=== PATIENT | female | born 1960 | race Caucasian/White ===

== ENCOUNTER → 2016-08-18 | Outpatient (CLI) | payer BC ==
--- NOTE | 2016-08-18 12:53 | WWHP ---
DATE OF SERVICE: 08/18/2016 CHIEF COMPLAINT: The patient is here for her routine gynecologic exam and mammogram. HPI: This is a 55-year-old, G2, P1-0-1-1 with an LMP of 2014. The patient is without gynecologic complaints and denies any postmenopausal bleeding. She states hot flashes are bearable and not very severe. She is without gynecologic complaints. PAST MEDICAL HISTORY: Chronic hypertension, type 2 diabetes, hypothyroidism, elevated cholesterol, sleep apnea, and osteopenia. MEDICATIONS: 1. Enalapril 10/25 mg daily. 2. Synthroid 112 mcg daily. 3. Metformin 500 mg b.i.d. 4. An [id number] cholesterol supplement daily. ALLERGIES: No known drug allergies. 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 SOCIAL HISTORY: She quit smoking in 2012 and has about 1 to 2 alcoholic drinks per week. She denies drug use. 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 She has been with her boyfriend since 2007 and previously was . REVIEW OF SYSTEMS: She has gained about 4 pounds over the last year. She denies respiratory, cardiac, or GI problems. PHYSICAL EXAM: Blood pressure 129/84. Height 5 feet 3 inches. Weight 254 pounds. Temperature 98.5, pulse 71. This a well-developed, heavyset white female who is alert and oriented x3 in no acute distress. HEENT is within normal limits. NECK: Supple without mass or thyromegaly. CHEST AND LUNGS: Clear to auscultation. HEART: Regular rate and rhythm. Breasts are without mass or discharge. Axillary exam is negative for adenopathy. BACK: Negative for CVA tenderness. ABDOMEN: Obese, soft, nontender, without palpable masses. PELVIC EXAM: Normal external genitalia. Cervix and vagina reveal mild atrophy without lesions. There is no evidence of prolapse. The uterus is midposition, nongravid size and nontender. There are no palpable adnexal masses or tenderness. Bimanual examination is somewhat limited secondary to her size. Rectovaginal exam is negative for mass or tenderness and is negative for occult blood. EXTREMITIES: Nontender. IMPRESSION: 1. A 55-year-old menopausal female with mild vasomotor symptoms. 2. Normal gynecologic exam. 3. History of osteopenia. PLAN: 1. Pap smear was deferred, since she had a normal one last year. 2. Self breast examination was discussed. 3. Mammogram will be done today. 4. Osteoporosis prevention was discussed. Bone density screening will be done today. 5. I have recommended screening colonoscopy based on her age. She states she has some names of people who can do this and will look into doing this. 6. She will return in one year.
--- NOTE | 2016-08-18 15:07 | BD ---
EXAMINATION TYPE: MG DEXA axial skeleton. DATE OF EXAM: 08/18/2016 10:06 AM COMPARISON: NONE CLINICAL HISTORY: Postmenopausal female without hormonal replacement therapy Height: 62.5 IN Weight: 252 LBS FRAX RISK QUESTIONS: Alcohol (3 or more units per day): NO Family History (Parent hip fracture): NO Glucocorticoids (More than 3mos): NO (Ex: prednisone, prednisolone, methylprednisolone, dexamethasone, and hydrocortisone). History of Fracture in Adulthood: NO Secondary Osteoporosis: 1. Type 1 Diabetes: NO 2. Hyperthyroidism: NO 3. Menopause before 45: NO 4. Malnutrition: NO 5. Chronic liver disease: NO Rheumatoid Arthritis: NO Current Tobacco Use: NO RISK FACTORS HISTORY OF: Active: YES Postmenopausal woman: AGE 54 MEDICATIONS: Thyroid Medications: YES Which medication: Synthroid How Long: SINCE AGE 14 Additional Medications: VIT D, SYNTHROID, METFORMIN, HCTZ, NAPROXEN, B12, BIOTIN, MELATONIN EXAM MEASUREMENTS: Bone mineral densitometry was performed using the Verious System. Bone mineral density as measured about the Lumbar spine is: ----- L1-L4(G/cm2): 1.061 T Score Values are as follows: ----- L2: -1.5 ----- L3: -0.1 ----- L4: -1.0 ----- L1-L4: -1.0 Bone mineral density BASELINE Bone mineral density about the R hip (g/cm2): 0.948 Bone mineral density about the L hip (g/cm2): 0.830 T Score values are as follows: -----R Neck: -0.6 -----L Neck: -1.5 -----R Total: 0.0 -----L Total: -0.4 Bone mineral density BASELINE IMPRESSION: Osteopenia NOTE: T-SCORE=SD OF THE YOUNG ADULT MEAN.
--- NOTE | 2016-08-19 10:36 | MM ---
Reason for exam: screening (asymptomatic). Last mammogram was performed 1 year and 2 months ago. History: Patient has history of other cancer at age 14. Benign US left CoreBiopsy of both breasts, April 14, 2007. Benign US right core biopsy of the right breast, April 14, 2007. Benign US right core biopsy of the right breast, April 14, 2007. Cyst aspiration of the right breast, April 05, 2007. Physical Findings: A clinical breast exam by your physician is recommended on an annual basis and results should be correlated with mammographic findings. MG 3D Screening Mammo W/Cad Bilateral CC and MLO view(s) were taken. Prior study comparison: July 02, 2015, bilateral MG screening mammo w CAD. June 26, 2014, bilateral MG screening mammo w CAD. The breast tissue is heterogeneously dense. This may lower the sensitivity of mammography. Previous mammotome biopsy in the right and left breast. There is chronic nodularity in the left breast. No significant changes when compared with prior studies. ASSESSMENT: Benign, BI-RAD 2 RECOMMENDATION: Routine screening mammogram of both breasts in 1 year.
== END | disposition home or self-care (01) ==
LOC: WWCWWP 07:48
PROVIDERS: ATTEND Obstetrics & Gynecology
DX: Z12.31 Encounter for screening mammogram for malignant neoplasm of breast (principal); M85.80 Other specified disorders of bone density and structure, unspecified site
CPT/HCPCS: 77080; 77063; G0202

== ENCOUNTER → 2016-10-07 | Outpatient (CLI) | payer BC ==
[2016-10-07 08:21] LABS: CH 31.5; CHCM 34.9; HCT 39.3 % (34.0-46.0); MCH 32.2 pg (25.0-35.0); MCHC 35.5 g/dL (31.0-37.0); MCV 90.6 fL (80.0-100.0); Mean Platelet Volume 6.9; RBC 4.33 m/uL (3.80-5.40); RDW 13.6 % (11.5-15.5)
[2016-10-07 08:32] LABS: Amorphous Sediment,Urine Occasional /hpf; Appearance,Urine Cloudy (Clear); Bilirubin,Urine Negative (Negative); Glucose,Urine (UA) Negative (Negative); Ketones,Urine Negative (Negative); Leukocyte Esterase,Urine Negative (Negative); Mucus,Urine Rare /hpf; Nitrite,Urine Negative (Negative); PH, Urine 5.5 (5.0-8.0); Particle Count 4199; Protein,Urine Trace (Negative); Specific Gravity,Urine 1.023 (1.001-1.035); Squamous Epithelial Cell,Urine 7 /hpf (0-4); UA Billing (MACRO vs. MICRO) MICRO; Urobilinogen,Urine <2.0 mg/dL (<2.0); WBC,Urine 3 /hpf (0-5)
[2016-10-07 11:52] LABS: ALT 86 U/L (9-52); AST 52 U/L (14-36); Alkaline Phosphatase 81 U/L (38-126); Anion Gap 12 mmol/L; Blood Urea Nitrogen 24 mg/dL (7-17); C Reactive Protein 14.8 mg/L (<10.0); Calcium 9.2 mg/dL (8.4-10.2); Carbon Dioxide 26 mmol/L (22-30); Chloride 104 mmol/L (98-107); Glucose 116 mg/dL (74-99); HDL Cholesterol 76 mg/dL (40-60); Non-African American GFR(MDRD) >60 (>60 ml/min/1.73 sqM); Potassium 3.8 mmol/L (3.5-5.1); Sodium 142 mmol/L (137-145); Total Bilirubin 0.8 mg/dL (0.2-1.3); Total Protein 7.2 g/dL (6.3-8.2); Triglycerides 98 mg/dL (<150)
[2016-10-07 12:42] LABS: Cholesterol 240 mg/dL (<200)
[2016-10-07 14:39] LABS: Hemoglobin A1C 6.2 % (4.2-6.1)
== END | disposition home or self-care (01) ==
LOC: LABWHC1 07:55
PROVIDERS: ATTEND Internal Medicine
DX: E78.5 Hyperlipidemia, unspecified (principal); E03.9 Hypothyroidism, unspecified; E11.9 Type 2 diabetes mellitus without complications
CPT/HCPCS: 36415; 80053; 80061; 81001; 82043; 82570; 83036; 84443; 85027; 86140

== ENCOUNTER → 2016-11-11 | Outpatient (CLI) | payer BC ==
--- NOTE | 2016-11-12 05:32 | WWPN ---
DATE OF SERVICE: 11/11/2016 CHIEF COMPLAINT: Light vaginal bleeding on and off since 10/16/2016. HPI: This is a 55-year-old G2, P1-0-1-1 with an LMP of 2014. She states she did not have vaginal bleeding until last month. On 10/16/16, she had light stringy bleeding. She also had light bleeding episodes on 10/26/16, 11/07/16 and 11/09/16. She states none of these episodes were like a period, but were very light. Occasionally, the blood was dark, but at times was brighter red. She also has been experiencing some breast soreness for the past 2 months. With the first episode of bleeding, she did have some low back cramping. Since then, the bleeding episodes were without pelvic cramping. She denies vaginal bleeding with sexual activity. She denies any nipple leakage from the breast. She continues to have some hot flashes, which are not very severe, but are slightly worse than the past year. PAST MEDICAL HISTORY: Chronic hypertension, type 2 diabetes, hypothyroidism, elevated cholesterol, sleep apnea, osteopenia and she was recently diagnosed with fatty liver. MEDICATIONS: 1. Triamterene hydrochlorothiazide 37.5/25 one daily. 2. Enalapril 10/25 daily. 3. Synthroid 112 mcg daily. 4. Metformin 500 mg b.i.d. 5. She also uses an okyg-orp-gvpylky cholesterol supplement daily. ALLERGIES: No known drug allergies. REVIEW OF SYSTEMS: She denies respiratory, cardiac or GI problems. Weight has been stable over the past few months. PHYSICAL EXAM: Blood pressure 119/82. Height 5 feet 3 inches. Weight 252 pounds. Temperature 98.0. Pulse 93. This is a well-developed, obese, white female who is alert and oriented x3 in no acute distress. ABDOMEN: Obese, soft, nontender without palpable masses. PELVIC EXAM: External genitalia reveals minimal atrophy without lesions. Cervix does reveal a small polypoid growth at the cervical os measuring approximately 4 to 5 mm. This is slightly friable upon being touched. There are no other cervical lesions. There is no unusual discharge. There is no cervical motion tenderness. The vagina appears normal with minimal atrophy. There is no evidence of prolapse. The uterus is mid position, multiparous, nongravid size and nontender. There are no palpable adnexal masses or tenderness. Bimanual examination is somewhat limited secondary to her size. EXTREMITIES: Nontender. IMPRESSION: A 55-year-old female with several episodes of postmenopausal bleeding, which has been light. Differential diagnosis will include bleeding from cervical polyp, uterine bleeding secondary to functioning ovaries. Uterine bleeding from hormonal peripheral conversion into estrogen causing endometrial growth, endometrial neoplasm including possible hyperplasia or endometrial cancer. Also, less likely, ovarian neoplasm causing hormone production. PLAN: 1. Pelvic ultrasound will be scheduled. 2. The patient will be scheduled for an endometrial biopsy and removal of the cervical polypoid growth. We have discussed these procedures in detail including possible risks including bleeding, infection and uterine perforation with damage to surrounding structures. 3. She also understands if I am not able to perform the endometrial biopsy because of cervical stenosis or other reasons, outpatient D&C with possibly hysteroscopy may be warranted. 4. If endometrial biopsy is benign, we will consider cyclic progestin treatment. 5. She also understands if she is having recurrent bleeding even if the endometrial biopsy is benign that further workup such as D&C may be necessary. 6. These appointments for the workup will be made for the near future. Total time spent with the patient 30 minutes. OSWALD
== END | disposition home or self-care (01) ==
LOC: WWCWWP 11:15
PROVIDERS: ATTEND Obstetrics & Gynecology
DX: Z01.419 Encounter for gynecological examination (general) (routine) without abnormal findings (principal)

== ENCOUNTER → 2016-11-24 | Outpatient (CLI) | payer BC ==
--- NOTE | 2016-11-24 11:10 | US ---
EXAMINATION TYPE: US pelvis complete transvag DATE OF EXAM: 11/24/2016 COMPARISON: NONE CLINICAL HISTORY: N95.0 Postmenopausal bleeding. TECHNIQUE: Transvaginal (TV) and Transabdominal (TA) Date of LMP: 2014 EXAM MEASUREMENTS: Uterus: 7.4 x 3.4 x 4.9 cm Endometrial Stripe: 1.1 cm Right Ovary: 1.7 x 0.9 x 1.1 cm Left Ovary: 1.4 x 1.2 x 1.1 cm 1. Uterus: Anteverted wnl 2. Endometrium: thickened for postmenopausal not on HRT. 3. Right Ovary: wnl 4. Left Ovary: wnl 5. Bilateral Adnexa: wnl 6. Posterior cul-de-sac: no free fluid The uterus is heterogenous. I could not exclude adenomyosis. IMPRESSION: 1. ENDOMETRIAL STRIPE IS UPPER LIMITS OF NORMAL. 2. HETEROGENOUS UTERUS MAY REFLECT ADENOMYOSIS.
--- NOTE | 2016-11-24 15:21 | P.PCN ---
Date of Procedure: 11/24/16 Preoperative Diagnosis: Postmenopausal bleeding and endocervical polyp Postoperative Diagnosis: Same Procedure(s) Performed: Removal of Endo cervical polyp and endometrial biopsy Implants: Anesthesia: none Surgeon: Loco Ames Estimated Blood Loss (ml): 1 IV fluids (ml): 0 Pathology: other (Endo cervical polyp and endometrial biopsy tissue) Condition: stable Disposition: same day Indications for Procedure: This was a 56 year old 011 with the last normal menstrual period of 2014. The patient developed 3 episodes of light relief vaginal bleeding between and 11/09/2016. Was found to have an Endo cervical polyp on 11/11/2016 the procedures were explained to the patient. Possible risks and complications including bleeding and infection, and uterine perforation were discussed with the patient. All of her questions were answered. Operative Findings: In Endo cervical polyp measuring 7 x 5 x 4 mm all was noted and was slightly friable. The uterus measured 7 cm. There were no palpable adnexal masses or tenderness. Pre-procedure vital signs: blood pressure 123/85, height 5'3", weight 254 pounds , tension 96.2, pulse 78. OPERATIVE PROCEDURE: The endometrial biopsy procedure was described to the patient. All of her questions were answered. The patient was placed in the lithotomy position. Bimanual examination was performed. The uterus is mid- positioned and is non- gravid size. The speculum was inserted and the cervix and vagina were prepped with betadine solution. In Endo cervical polyp was noted measuring approximately 7x5x4 mm in size. This was slightly friable. This was removed in 3 pieces and these pieces were sent for pathological examination. The 3mm endometrial biopsy curette was placed to the fundus without difficulty. The uterus sounded to 7 cm. a hgft-fid-deogb rotating motion was used and a small amount of tissue was obtained and sent for pathological examination. The patient tolerated the procedure well. There were no complications. The post procedure vitals are as follows: blood pressure 132/79. pulse 71, temperature 96.0. Post procedure instructions were given to the patient. Description of Procedure:
== END | disposition home or self-care (01) ==
LOC: RADUSWWP 10:17
PROVIDERS: ATTEND Obstetrics & Gynecology
DX: N95.0 Postmenopausal bleeding (principal); N84.1 Polyp of cervix uteri; N84.0 Polyp of corpus uteri
CPT/HCPCS: 76830; 76856; 88305

== ENCOUNTER → 2017-04-07 | Outpatient (CLI) | payer BC ==
[2017-04-07 08:36] LABS: ALT 83 U/L (9-52); AST 48 U/L (14-36); Glucose 115 mg/dL (74-99)
[2017-04-07 19:46] LABS: Hemoglobin A1C 5.8 % (4.0-6.0)
== END | disposition home or self-care (01) ==
LOC: LABWHC1 07:27
PROVIDERS: ATTEND Internal Medicine
DX: E11.9 Type 2 diabetes mellitus without complications (principal); E78.5 Hyperlipidemia, unspecified
CPT/HCPCS: 36415; 82947; 83036; 83721; 84450; 84460

== ENCOUNTER → 2017-08-31 | Outpatient (CLI) | payer BC ==
[2017-08-31 16:11] VITALS: PULSE 86; TEMP 98.4; BMI 44.8
[2017-08-31 16:25] VITALS: BP 118/84
--- NOTE | 2017-08-31 16:57 | P.HPOB ---
History of Present Illness H&P Date: 08/31/17 Chief Complaint: The patient is here for her routine gynecologic exam and mammogram. This is a 56-year-old with an LNMP of 2014. The patient developed postmenopausal bleeding last summer and removal of an endocervical polyp and endometrial biopsy on 11/24/2016. The findings were benign with a benign endocervical polyp and a small endometrial polyp on pathology. The patient noted a small spot of blood in May 2017 but has had no bleeding since then. Review of Systems Weight has been stable. She denies respiratory, cardiac, and G.I. problems. Past Medical History Past Medical History: Diabetes Mellitus (Type II diabetes), Hyperlipidemia, Hypertension, Thyroid Disorder (Hypothyroid) Additional Past Medical History / Comment(s): Sleep apnea, osteopenia and FATTY LIVER. 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 She had a benign endometrial biopsy-11/24/2016 History of Any Multi-Drug Resistant Organisms: None Reported Past Surgical History: Breast Surgery (Right breast biopsy) Additional Past Surgical History / Comment(s): Thyroidectomy and multiple moles removed from the skin. Colonoscopy 2017 Past Psychological History: No Psychological Hx Reported Smoking Status: Former smoker (Quick 2012) Past Alcohol Use History: Occasional (One per week) Past Drug Use History: None Reported Additional History: She is and has been with her boyfriend since 2007 and lives with him. 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 - Past Family History Father Family Medical History: Myocardial Infarction ([place]) Medications and Allergies Home Medications Medication Instructions Recorded Confirmed Type Cholecalciferol (Vitamin D3) cap PO DAILY 08/31/17 History [Vitamin D3] Cyanocobalamin (Vitamin B-12) mcg PO DAILY 08/31/17 History [Vitamin B12] Enalapril/Hydrochlorothiazide tab PO DAILY 08/31/17 History [Enalapril-Hctz 10-25 mg Tablet] Levothyroxine Sodium mcg PO DAILY 08/31/17 08/31/17 History metFORMIN HCL ER [Glucophage Xr] mg PO BID 08/31/17 History Allergies Allergy/AdvReac Type Severity Reaction Status Date / Time No Known Allergies Allergy Unverified 08/31/17 16:07 Exam - Vital Signs Vital signs: Vital Signs Temp Pulse BP 08/31/17 16:07 98.4 F 86 118/84 Intake and Output 08/31/17 08/31/17 08/31/17 06:59 14:59 22:59 Other: Weight 114.759 kg Height 5'3", BMI 44.8. This is a well-developed well-nourished obese white female who is alert and oriented times 3 in no acute distress. HEENT: Within normal limits. NECK: Supple without mass or thyromegaly. CHEST AND LUNGS: Clear to auscultation. HEART: Regular rate and rhythm. BREASTS: Are without mass or discharge. AXILLARY EXAM: Negative for adenopathy. BACK: Negative for CVA tenderness. ABDOMEN: Soft, obese, nontender, without palpable masses. PELVIC EXAM: Normal external genitalia with mild atrophy. Cervix and vagina appear normal with mild atrophy. The cervix appears somewhat stenotic secondary to atrophy. There is no unusual discharge. There is no evidence of prolapse. The uterus is midposition, nongravid size and nontender. There are no palpable adnexal masses or tenderness. RECTAL EXAM: rectovaginal exam is negative for mass or tenderness and is negative for occult blood. EXTREMITIES: Nontender. IMPRESSION: 1. 56-year-old menopausal female with normal gynecologic exam. 2. Brief vaginal spot in the May 2017. No bleeding since then. Benign endometrial biopsy on 11/24/2016. 3. History of osteopenia. PLAN: 1. Pap smear was performed. 2. Self breast awareness was discussed. 3. Screening mammogram will be done today. 4. We have discussed the option of repeating pelvic ultrasound and possible tissue sampling or D&C. She is declining any further testing at this time and would like to watch this conservatively since she has not had any recurrence of the bleeding after May. She was told to call if she has any recurring bleeding. She states she will do this. 5. Osteoporosis prevention was discussed. We will plan and repeating bone density testing in 2019. 6. She will return in one year and PRN.
--- NOTE | 2017-09-01 14:15 | MM ---
Reason for exam: screening (asymptomatic). Last mammogram was performed 1 year ago. History: Patient is postmenopausal and has history of other cancer at age 14. Benign US left CoreBiopsy of both breasts, April 14, 2007. Benign US right core biopsy of the right breast, April 14, 2007. Benign US right core biopsy of the right breast, April 14, 2007. Cyst aspiration of the right breast, April 05, 2007. Physical Findings: A clinical breast exam by your physician is recommended on an annual basis and results should be correlated with mammographic findings. MG Screening Mammo w CAD Bilateral CC and MLO view(s) were taken. Prior study comparison: August 18, 2016, bilateral MG 3d screening mammo w/cad. July 02, 2015, bilateral MG screening mammo w CAD. The breast tissue is heterogeneously dense. This may lower the sensitivity of mammography. Benign appearing bilateral calcifications. No suspicious abnormality. Bilateral biopsy markers noted. No significant changes when compared with prior studies. ASSESSMENT: Benign, BI-RAD 2 RECOMMENDATION: Routine screening mammogram of both breasts in 1 year.
== END | disposition home or self-care (01) ==
LOC: WWCWWP 15:54
PROVIDERS: ATTEND Obstetrics & Gynecology
DX: Z12.31 Encounter for screening mammogram for malignant neoplasm of breast (principal)
CPT/HCPCS: 77067

== ENCOUNTER → 2018-10-25 | Outpatient (CLI) | payer BC ==
[2018-10-25 16:00] VITALS: BP 133/85; PULSE 71; RESP 18; TEMP 97.7; BMI 46.5
--- NOTE | 2018-10-25 16:40 | P.HPOB ---
History of Present Illness H&P Date: 10/25/18 Chief Complaint: The patient is here for her routine gynecologic exam and ma mmogram. This is a 57-year-old with an LMP of 2015. The patient is without gynecologic complaints. Review of Systems The patient has gained 10 pounds over the last year. She denies respiratory, cardiac, or G.I. problems. Past Medical History Past Medical History: Diabetes Mellitus, Hyperlipidemia, Hypertension, Thyroid Disorder Additional Past Medical History / Comment(s): Type II diabetes and hypothyroidism. Sleep apnea, osteopenia and FATTY LIVER. 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 She had a benign endometrial biopsy-11/24/2016 History of Any Multi-Drug Resistant Organisms: None Reported Past Surgical History: Breast Surgery Additional Past Surgical History / Comment(s): Thyroidectomy and multiple moles removed from the skin. Right breast biopsy. Colonoscopy 2018(next 5 yrs) Past Psychological History: No Psychological Hx Reported Smoking Status: Former smoker Past Alcohol Use History: Occasional (One per week) Additional Past Alcohol Use History / Comment(s): Quit smoking in 2012. Past Drug Use History: None Reported Additional History: She is and has been with her boyfriend since 2007. They live together. She works at the [employer] in the [employer]. - Past Family History Father Family Medical History: Myocardial Infarction ([place]) Medications and Allergies Home Medications Medication Instructions Recorded Confirmed Type Cholecalciferol (Vitamin D3) 1,000 cap PO DAILY 08/31/17 10/25/18 History [Vitamin D3] Enalapril/Hydrochlorothiazide 25 tab PO DAILY 08/31/17 10/25/18 History [Enalapril-Hctz 10-25 mg Tablet] Levothyroxine Sodium 112 mcg PO DAILY 08/31/17 10/25/18 History metFORMIN HCL ER [Glucophage Xr] 500 mg PO BID 08/31/17 10/25/18 History Glucosam/Kvng-Msm1/C/John/Bosw 1 each PO DAILY 10/25/18 10/25/18 History [Glucosamine-Chondroitin Tablet] L.acidoph,Paracasei, B.lactis 1 each PO DAILY 10/25/18 10/25/18 History [Probiotic] Allergies Allergy/AdvReac Type Severity Reaction Status Date / Time No Known Allergies Allergy Unverified 10/25/18 16:01 Exam Vital Signs Temp Pulse Resp BP Pulse Ox 10/25/18 15:55 97.7 F 71 18 133/85 96 Intake and Output 10/25/18 10/25/18 10/25/18 06:59 14:59 22:59 Other: Weight 119.295 kg Height 5'3", weight 263 pounds, BMI 46.6. This is a well-developed well-nourished obese white female who is alert and oriented times 3 in no acute distress. HEENT: Within normal limits. NECK: Supple without mass or thyromegaly. CHEST AND LUNGS: Clear to auscultation. HEART: Regular rate and rhythm. BREASTS: Are without mass or discharge. AXILLARY EXAM: Negative for adenopathy. BACK: Negative for CVA tenderness. ABDOMEN: Soft, obese, nontender, without palpable masses. PELVIC EXAM: Normal external genitalia with mild atrophy. Cervix and vagina appear normal with minimal atrophy. There is no unusual discharge. There is no evidence of prolapse. The uterus is midposition, nongravid size and nontender. There are no palpable adnexal masses or tenderness. RECTAL EXAM: rectovaginal exam is negative for mass or tenderness and is negative for occult blood. EXTREMITIES: Nontender. IMPRESSION: 1. 57-year-old menopausal female with normal gynecologic exam. 2. History of osteopenia. PLAN: 1. Pap smear was deferred since she had a normal one on 08/31/2017. 2. Self breast awareness was discussed with the patient. 3. Screening mammogram will be done today. 4. Osteoporosis prevention was discussed. I have stressed the importance of adequate calcium, vitamin D and regular exercise. Recommended amounts of calcium and vitamin D were also discussed. We will repeat bone density testing in one year. 5. She was advised to return in one year for her annual well woman exam.
--- NOTE | 2018-10-27 11:23 | MM ---
Reason for exam: screening (asymptomatic). Last mammogram was performed 1 year and 2 months ago. History: Patient is postmenopausal and has history of other cancer at age 14. Benign US left CoreBiopsy of both breasts, April 14, 2007. Benign US right core biopsy of the right breast, April 14, 2007. Benign US right core biopsy of the right breast, April 14, 2007. Cyst aspiration of the right breast, April 05, 2007. Physical Findings: A clinical breast exam by your physician is recommended on an annual basis and results should be correlated with mammographic findings. MG Screening Mammo w CAD Bilateral CC and MLO view(s) were taken. Prior study comparison: August 31, 2017, bilateral MG screening mammo w CAD. August 18, 2016, bilateral MG 3d screening mammo w/cad. The breast tissue is heterogeneously dense. This may lower the sensitivity of mammography. Benign appearing bilateral calcifications. No suspicious abnormality. Bilateral biopsy markers noted. No significant changes when compared with prior studies. ASSESSMENT: Benign, BI-RAD 2 RECOMMENDATION: Routine screening mammogram of both breasts in 1 year.
== END | disposition home or self-care (01) ==
LOC: WWCWWP 15:51
PROVIDERS: ATTEND Obstetrics & Gynecology
DX: Z12.31 Encounter for screening mammogram for malignant neoplasm of breast (principal)
CPT/HCPCS: 77067

== ENCOUNTER → 2019-03-15 | Outpatient (CLI) | payer BC ==
[2019-03-15 08:47] VITALS: BP 138/83; PULSE 74; RESP 18; TEMP 97.7
--- NOTE | 2019-03-15 09:35 | P.PN ---
Progress Note - Text Progress Note Date: 03/15/19 Chief Complaint: postmenopausal bleeding that started during the third week of January. HPI:This is a 58-year-old 011 with an LNMP of 2015. The patient had postmenopausal bleeding in 2016 and pelvic ultrasound showed slight endometrial thickening. Endometrial biopsy performed on 11/24/2016 showed a benign endocervical and endometrial polyp with mildly disordered proliferative endometrium. The patient did not have any more postmenopausal bleeding after that until approximately 3 weeks ago when she had a period like bleeding that lasted for 5 days and she has had intermittent spotting since then. She believes the spotting during the past couple of weeks have been associated with very stressful times. She denies any significant pain and the bleeding has not been associated with sexual activity. ROS:she has lost about 5 pounds over the last 5 months. she denies respiratory, cardiac, or GI problems. PE: Blood pressure:138/83, Height:5 feet 3 inches, Weight:258 pounds, Temperature:97.7, Pulse:74, pulse oximeter 96%. This is a well developed, well nourished, White female who is alert and orientedx3, in no acute distress. abdomen: Mildly obese, soft and nontender without palpable masses. Pelvic exam: Normal external genitalia. Cervix and vagina appear normal and there is a scant amount of light brownish old blood with no active bleeding. The uterus is mid position, nongravid size and nontender. There are no palpable adnexal masses or tenderness. Bimanual examination is somewhat limited secondary to her size. Impression: 1. 58-year-old menopausal female with recurrent postmenopausal bleeding after approximately 2 years without bleeding. 2. previous benign endometrial biopsy pathology 2 years ago with endocervical and endometrial polyps. Plan: 1. The patient will be referred for possible hysteroscopy and D&C. She will be referred to Dr. George since she has seen her once before in the past. 2. The patient was instructed to call if she has heavy bleeding or problems. Time spent with the patient: 20 minutes
== END ==
LOC: WWCWWP 08:26
PROVIDERS: ATTEND Obstetrics & Gynecology
DX: Z53.9 Procedure and treatment not carried out, unspecified reason (principal)

== ENCOUNTER → 2019-04-14 | Outpatient (CLI) | payer BC ==
[2019-04-14 14:41] LABS: Basophils % (A) 1 %; Eosinophils # (A) 0.2 k/uL (0-0.7); Eosinophils % (A) 2 %; HCT 38.1 % (34.0-46.0); HGB 12.9 gm/dL (11.4-16.0); Lymphocytes # (A) 1.7 k/uL (1.0-4.8); Lymphocytes % (A) 26 %; MCH 31.4 pg (25.0-35.0); MCV 92.4 fL (80.0-100.0); Mean Platelet Volume 7.2; Monocytes # (A) 0.2 k/uL (0-1.0); Monocytes % (A) 4 %; Neutrophils # (A) 4.3 k/uL (1.3-7.7); Neutrophils % (A) 65 %; Platelet Count 310 k/uL (150-450); RBC 4.12 m/uL (3.80-5.40); RDW 13.3 % (11.5-15.5); WBC 6.6 k/uL (3.8-10.6)
== END | disposition home or self-care (01) ==
LOC: LABPAT 14:08
PROVIDERS: ATTEND Obstetrics & Gynecology
DX: Z01.818 Encounter for other preprocedural examination (principal); Z01.812 Encounter for preprocedural laboratory examination; I10 Essential (primary) hypertension; N95.0 Postmenopausal bleeding; N84.0 Polyp of corpus uteri
CPT/HCPCS: 36415; 85025; 93005

== ENCOUNTER 2019-04-24 08:11 | Day surgery (SDC) | payer BC ==
[2019-04-19 15:21] VITALS: BMI 45.1
[~2019-04-24 08:11] MED LIST: DEXAMETHASONE SOD PHOSPHATE 10 MG/ML 1 ML VIAL IV ONE; HYDROmorphone 0.5 MG/0.5 ML SYRINGE IVP PRN; LACTATED RINGERS 1,000 ML IV SCH; MIDAZOLAM 2 MG/2 ML VIAL IV PRN; ONDANSETRON 4 MG/2 ML VIAL IVP ONE; Pre Op ABX Message 1 EACH MISC MISCELLANE ONE; SCOPOLAMINE 1.5MG/72HR PATCH TRANSDERM ONE
[2019-04-24 08:46] LABS: Glucose,Whole Blood 128 mg/dL (75-99)
[2019-04-24] MEDS ORDERED: LIDOCAINE 1% 20 ML VIAL (10MG/ML) FOR IV START INTRADERMA ONE (08:47)
[2019-04-24] MEDS ORDERED: PROPOFOL 10 MG/ML 20 ML VIAL IV ONE (09:33)
[2019-04-24] MEDS ORDERED: fentaNYL (PF) 50 MCG/ML 2 ML AMP ONE (09:33)
[2019-04-24] MEDS ORDERED: SUCCINYLCHOLINE CHLORIDE 100 MG/5 ML SYR IV ONE (09:33)
[2019-04-24] MEDS ORDERED: LIDOCAINE 1% INJ 10MG/ML (20 ML MDV) ONE (09:33)
[2019-04-24] MEDS ORDERED: MIDAZOLAM 2 MG/2 ML VIAL ONE (09:33)
[2019-04-24] MEDS ORDERED: KETOROLAC 30 MG/ML 1 ML VIAL ONE (09:33)
[2019-04-24] MEDS ORDERED: SILVER NITRATE APPLICATOR 1 EACH STICK..EA. TOPICAL ONE (10:00)
--- NOTE | 2019-04-24 10:05 | P.OP ---
Date of Procedure: 04/24/19 Preoperative Diagnosis: Postmenopausal bleeding, history endometrial polyps Postoperative Diagnosis: Same, multiple endometrial polyps, pathology pending Procedure(s) Performed: Hysteroscopy, D&C, polypectomy Anesthesia: JAYSONA Surgeon: Rufina George Estimated Blood Loss (ml): 20 IV fluids (ml): 400 Urine output (ml): 150 Pathology: other (Endometrial curettings and polyps) Condition: stable Disposition: PACU Description of Procedure: Patient is brought to the [facility] and suite where a general anesthetic is administered without difficulty. She's placed in the dorsal lithotomy position. The appropriate timeout was performed to assure proper patient and procedural identification. The cervix, vagina, perineal bodies are all prepped and draped in usual sterile fashion. Examination under anesthesia reveals a small anteverted uterus, with a grade 2-3 uterine prolapse noted. Adnexa are negative to palpation. The latter strain for approximately 150 mL of clear yellow urine. Weighted speculum was placed into the vagina. Anterior lip of the cervix is grasped with a double-tooth tenaculum. Uterus sounds to a depth of 8 cm in the anteverted position. The cervix was gently and systematically dilated using Hanks dilators. The hysteroscope was then placed and fluid is infused into the cavity. The cavity is distended and inspected, and is noted to contain multiple fleshy appearing endometrial polyps. Ostia appear negative. Hysteroscope was removed. A medium sharp curette is used and the cavity is thoroughly curettaged for tissue and multiple polyps. Hysteroscope was once again introduced and the cavity is noted to be clear. Hemostasis is excellent. All sponge needle and enhancement counts are correct. Patient is brought back to the recovery room in very good condition with stable vital signs including a pulse of 76, blood pressure 125/67, 98% O2 saturation. Toradol is given prior to leaving the operative suite. Patient will follow-up with me in the office in 2 weeks.
[2019-04-24 10:14] VITALS: TEMP 97.4
[2019-04-24 10:20] VITALS: RESP 16
[2019-04-24 10:28] LABS: Glucose,Whole Blood 128 mg/dL (75-99)
[2019-04-24 11:28] VITALS: BP 128/76; PULSE 81
== END 2019-04-24 11:33 | disposition home or self-care (01) ==
LOC: OR 08:11
PROVIDERS: ATTEND Obstetrics & Gynecology
DX: N84.0 Polyp of corpus uteri (principal); N95.0 Postmenopausal bleeding; I10 Essential (primary) hypertension; E11.9 Type 2 diabetes mellitus without complications; K76.0 Fatty (change of) liver, not elsewhere classified; E78.5 Hyperlipidemia, unspecified; E89.0 Postprocedural hypothyroidism; M85.80 Other specified disorders of bone density and structure, unspecified site; G47.33 Obstructive sleep apnea (adult) (pediatric); Z98.890 Other specified postprocedural states; Z79.84 Long term (current) use of oral hypoglycemic drugs; Z79.890 Hormone replacement therapy; Z79.899 Other long term (current) drug therapy; Z87.891 Personal history of nicotine dependence; Z99.89 Dependence on other enabling machines and devices
CPT/HCPCS: 88305; 58558; J2250; J1100; J2405; J2001; J3010; J1885; J0330; J2704

== ENCOUNTER → 2019-12-19 | Outpatient (CLI) | payer BC ==
[2019-12-19 11:28] VITALS: BP 135/84; PULSE 84; RESP 18; TEMP 97.3
--- NOTE | 2019-12-19 12:00 | P.HPOB ---
History of Present Illness H&P Date: 12/19/19 Chief Complaint: The patient is here for her routine gynecologic exam and ma mmogram. This is a 59-year-old with an LMP of 2014. The patient is without gynecologic complaints. The patient underwent a hysteroscopy with D&C for some postmenopausal bleeding on 04/14/2019. An endometrial polyp was removed and the D&C was benign. She has not had any postmenopausal bleeding since then. Review of Systems The patient has gained 7 pounds over the last year. She denies respiratory, cardiac, or G.I. problems. Past Medical History Past Medical History: Diabetes Mellitus, Hyperlipidemia, Hypertension, Sleep Apnea/CPAP/BIPAP, Thyroid Disorder Additional Past Medical History / Comment(s): Type II diabetes and hypothyroidism. Sleep apnea, osteopenia and FATTY LIVER. 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 History of Any Multi-Drug Resistant Organisms: None Reported Past Surgical History: Breast Surgery Additional Past Surgical History / Comment(s): Thyroidectomy and multiple moles removed from the skin. Right breast biopsy. Colonoscopy 2017(next 5 yrs). H/S D&C 03/2019. Past Psychological History: No Psychological Hx Reported Smoking Status: Former smoker Past Alcohol Use History: Occasional (1 every 2 weeks) Additional Past Alcohol Use History / Comment(s): Quit smoking in 2012. Past Drug Use History: None Reported Additional History: She is and has been with her boyfriend since 2007. They live together. She works at the [employer] in the [employer] department. - Past Family History Father Family Medical History: Myocardial Infarction ([place]) Mother Family Medical History: AFIB, Hypertension, Osteoarthritis (OA) Medications and Allergies Home Medications Medication Instructions Recorded Confirmed Type Enalapril/Hydrochlorothiazide 1 tab PO DAILY 08/31/17 12/19/19 History [Enalapril-Hctz 10-25 mg Tablet] Levothyroxine Sodium 112 mcg PO DAILY 08/31/17 12/19/19 History metFORMIN HCL ER [Glucophage Xr] 500 mg PO BID 08/31/17 12/19/19 History L.acidoph,Paracasei, B.lactis 1 each PO DAILY 10/25/18 12/19/19 History [Probiotic] Allergies Allergy/AdvReac Type Severity Reaction Status Date / Time No Known Allergies Allergy Unverified 12/19/19 11:25 Exam Vital Signs Temp Pulse Resp BP Pulse Ox 12/19/19 11:26 97.3 F L 84 18 135/84 97 Intake and Output 12/18/19 12/19/19 12/19/19 22:59 06:59 14:59 Other: Weight 122.47 kg Height 5 feet 3 inches, weight 270 pounds, BMI 47.8. This is a well-developed well-nourished heavyset white female who is alert and oriented times 3 in no acute distress. HEENT: Within normal limits. NECK: Supple without mass or thyromegaly. CHEST AND LUNGS: Clear to auscultation. HEART: Regular rate and rhythm. BREASTS: Are without mass or discharge. AXILLARY EXAM: Negative for adenopathy. BACK: Negative for CVA tenderness. ABDOMEN: Soft, nontender, without palpable masses. PELVIC EXAM: Normal external genitalia with mild atrophy. Cervix and vagina appear normal with mild atrophy. There is no unusual discharge. There is no evidence of prolapse. The uterus is midposition, nongravid size and nontender. There are no palpable adnexal masses or tenderness. Bimanual examination is somewhat limited secondary to her size. RECTAL EXAM: Rectovaginal exam is negative for mass or tenderness and is negative for occult blood. EXTREMITIES: Nontender. IMPRESSION: 1. 59-year-old menopausal female with normal gynecologic exam. 2. History of osteopenia. PLAN: 1. Pap smear was performed. 2. Self breast awareness was discussed with the patient. 3. Screening mammogram will be done today. 4. Osteoporosis prevention was discussed. I have stressed the importance of adequate calcium, vitamin D and regular exercise. Recommended amounts of calcium and vitamin D were also discussed. Bone density testing will be done today. 5. She was advised to return in one year for her annual well woman exam.
--- NOTE | 2019-12-19 15:31 | BD ---
EXAMINATION TYPE: Axial Bone Density DATE OF EXAM: 12/19/2019 COMPARISON: 08/18/2016 CLINICAL HISTORY: Height: 62 IN Weight: 267 LBS FRAX RISK QUESTIONS: 5. Chronic liver disease: FATTY LIVER RISK FACTORS HISTORY OF: Active: YES Postmenopausal woman: AGE 57 MEDICATIONS: Thyroid Medications: YES Which medication: Synthroid How Lon+ YEARS Additional Medications: SYNTHROID, METFORMIN, BLOOD PRESSURE MEDS Additional History: THYROID CANCER EXAM MEASUREMENTS: Bone mineral densitometry was performed using the [employer] System. Bone mineral density as measured about the Lumbar spine is: ----- L1-L4(G/cm2): 1.046 T Score Values are as follows: ----- L2: -1.4 ----- L3: -0.8 ----- L4: -1.2 ----- L1-L4: -1.1 Bone mineral density has: Decreased -3.5% since study of: 08/18/2016 Bone mineral density about the R hip (g/cm2): 0.939 Bone mineral density about the L hip (g/cm2): 0.896 T Score values are as follows: -----R Neck: -0.7 -----L Neck: -1.0 -----R Total: 0.0 -----L Total: -0.2 Bone mineral density has: Increased 1.2% since study of: 08/18/2016 IMPRESSION: Osteopenia (T Score between -2.5 and -1). There is slightly increased risk of fracture and the patient may be considered for treatment. Re-Screen 2-5 years. NOTE: T-SCORE=SD OF THE YOUNG ADULT MEAN.
--- NOTE | 2019-12-21 10:44 | MM ---
Reason for exam: screening (asymptomatic). Last mammogram was performed 1 year and 2 months ago. History: Patient is postmenopausal and has history of other cancer at age 14. Benign US left CoreBiopsy of both breasts, April 14, 2007. Benign US right core biopsy of the right breast, April 14, 2007. Benign US right core biopsy of the right breast, April 14, 2007. Cyst aspiration of the right breast, April 05, 2007. Physical Findings: A clinical breast exam by your physician is recommended on an annual basis and results should be correlated with mammographic findings. MG Screening Mammo w CAD Bilateral CC and MLO view(s) were taken. Prior study comparison: October 25, 2018, bilateral MG screening mammo w CAD. August 31, 2017, bilateral MG screening mammo w CAD. Previous mammotome biopsy in the right breast, Focal asymmetry right inferior MLO view, stable. No significant changes when compared with prior studies. ASSESSMENT: Benign, BI-RAD 2 RECOMMENDATION: Routine screening mammogram of both breasts in 1 year.
== END | disposition home or self-care (01) ==
LOC: WWCWWP 11:16
PROVIDERS: ATTEND Obstetrics & Gynecology
DX: Z12.31 Encounter for screening mammogram for malignant neoplasm of breast (principal); M85.80 Other specified disorders of bone density and structure, unspecified site; Z78.0 Asymptomatic menopausal state
CPT/HCPCS: 77067; 77080

== ENCOUNTER → 2021-01-28 | Outpatient (CLI) | payer BC ==
[2021-01-28 08:19] VITALS: BP 140/89; PULSE 94; RESP 18; TEMP 98.3
--- NOTE | 2021-01-28 08:47 | P.HPOB ---
History of Present Illness H&P Date: 01/28/21 Chief Complaint: The patient is here for her routine gynecologic exam and ma mmogram. This is a 60-year-old with an LMP of 2015. The patient is without gynecologic complaints and denies any postmenopausal bleeding. Review of Systems The patient's weight has been stable over the last year. She denies respiratory, cardiac, or G.I. problems. Past Medical History Past Medical History: Diabetes Mellitus, Hyperlipidemia, Hypertension, Sleep Apnea/CPAP/BIPAP, Thyroid Disorder Additional Past Medical History / Comment(s): Type II diabetes and hypothyroidism. Sleep apnea, osteopenia and FATTY LIVER. 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 History of Any Multi-Drug Resistant Organisms: None Reported Past Surgical History: Breast Surgery Additional Past Surgical History / Comment(s): Thyroidectomy and multiple moles removed from the skin. Right breast biopsy. Colonoscopy 2017(next 5 yrs). H/S D&C 03/2019. Past Psychological History: No Psychological Hx Reported Smoking Status: Former smoker Past Alcohol Use History: Occasional (2 per month) Additional Past Alcohol Use History / Comment(s): Quit smoking in 2012. Past Drug Use History: None Reported Additional History: She is and has been with her boyfriend since 2007. They live together. She works at the [employer] in the [employer]. - Past Family History Father Family Medical History: Myocardial Infarction ([place]) Mother Family Medical History: AFIB, Hypertension, Osteoarthritis (OA) Medications and Allergies Home Medications Medication Instructions Recorded Confirmed Type Enalapril/Hydrochlorothiazide 1 tab PO DAILY 08/31/17 01/28/21 History [Enalapril-Hctz 10-25 mg Tablet] Levothyroxine Sodium 112 mcg PO DAILY 08/31/17 01/28/21 History metFORMIN HCL ER [Glucophage XR] 500 mg PO BID 08/31/17 01/28/21 History L.acidoph,Paracasei, B.lactis 1 each PO DAILY 10/25/18 01/28/21 History [Probiotic] Cholecalciferol [Vitamin D3 (25 25 mcg PO DAILY 01/28/21 01/28/21 History Mcg = 1000 Iu)] Glucos Sul 2Kcl/MSM/Chond/C/Mn 1 each PO DAILY 01/28/21 01/28/21 History [Glucosamine Chondroitin Cap] Allergies Allergy/AdvReac Type Severity Reaction Status Date / Time No Known Allergies Allergy Unverified 01/28/21 08:14 Exam Vital Signs Temp Pulse Resp BP Pulse Ox 01/28/21 08:16 98.3 F 94 18 140/89 97 Intake and Output 01/27/21 01/28/21 01/28/21 22:59 06:59 14:59 Other: Weight 121.563 kg Height 5 feet 2-1/2 inches, weight 268 pounds, BMI 48.2. This is a well-developed well-nourished heavyset female who is alert and oriented times 3 in no acute distress. HEENT: Within normal limits. NECK: Supple without mass or thyromegaly. CHEST AND LUNGS: Clear to auscultation. HEART: Regular rate and rhythm. BREASTS: Are without mass or discharge. AXILLARY EXAM: Negative for adenopathy. BACK: Negative for CVA tenderness. ABDOMEN: Soft, nontender, without palpable masses. PELVIC EXAM: Normal external genitalia with mild atrophy. Cervix and vagina appear normal with mild atrophy. There is no unusual discharge. There is no evidence of prolapse. The uterus is midposition, nongravid size and nontender. There are no palpable adnexal masses or tenderness. RECTAL EXAM: Rectovaginal exam is negative for mass or tenderness and is negative for occult blood. EXTREMITIES: Nontender. IMPRESSION: 1. 60-year-old menopausal female with normal gynecologic exam. 2. History of osteopenia. PLAN: 1. Pap smear was deferred since she had a normal one on 12/19/2019. 2. Self breast awareness was discussed with the patient. We have also discussed symptoms associated with inflammatory breast cancer. 3. Screening mammogram will be done today. 4. Osteoporosis prevention was discussed. I have stressed the importance of adequate calcium, vitamin D and regular exercise. Recommended amounts of calcium and vitamin D were also discussed. We will plan on repeating bone density testing in 2022. 5. She has completed her Covid vaccination series. 6. She was advised to return in one year for her annual well woman exam.
--- NOTE | 2021-01-30 14:01 | MM ---
Reason for exam: screening (asymptomatic). Last mammogram was performed 1 year and 1 month ago. History: Patient is postmenopausal and has history of other cancer at age 14. Benign US left CoreBiopsy of both breasts, April 14, 2007. Benign US right core biopsy of the right breast, April 14, 2007. Benign US right core biopsy of the right breast, April 14, 2007. Cyst aspiration of the right breast, April 05, 2007. Physical Findings: A clinical breast exam by your physician is recommended on an annual basis and results should be correlated with mammographic findings. MG Screening Mammo w CAD Bilateral CC and MLO view(s) were taken. Prior study comparison: December 19, 2019, bilateral MG screening mammo w CAD. October 25, 2018, bilateral MG screening mammo w CAD. August 31, 2017, bilateral MG screening mammo w CAD. August 18, 2016, bilateral MG 3d screening mammo w/cad. The breast tissue is heterogeneously dense. This may lower the sensitivity of mammography. Previous mammotome biopsy in the right breast. There is chronic nodularity bilaterally. No significant changes when compared with prior studies. ASSESSMENT: Benign, BI-RAD 2 RECOMMENDATION: Routine screening mammogram of both breasts in 1 year.
== END ==
LOC: WWCWWP 08:04
PROVIDERS: ATTEND Obstetrics & Gynecology
DX: Z12.31 Encounter for screening mammogram for malignant neoplasm of breast (principal); Z01.419 Encounter for gynecological examination (general) (routine) without abnormal findings; Z87.39 Personal history of other diseases of the musculoskeletal system and connective tissue; E03.9 Hypothyroidism, unspecified; E11.9 Type 2 diabetes mellitus without complications; E78.5 Hyperlipidemia, unspecified; I10 Essential (primary) hypertension; Z87.891 Personal history of nicotine dependence; Z79.899 Other long term (current) drug therapy; Z79.84 Long term (current) use of oral hypoglycemic drugs
CPT/HCPCS: 77067

== ENCOUNTER → 2022-02-17 | Outpatient (CLI) | payer BC ==
[2022-02-17 14:12] VITALS: BP 142/92; PULSE 101; RESP 17; TEMP 98.8
--- NOTE | 2022-02-17 14:38 | P.HPOB ---
History of Present Illness H&P Date: 02/17/22 Chief Complaint: The patient is here for her routine gynecologic exam and ma mmogram. This is a 61-year-old with an LMP of 2015. The patient is without gynecologic complaints and denies any postmenopausal bleeding. Review of Systems The patient has lost 5 pounds over the last year. She denies respiratory, cardiac, or G.I. problems. Past Medical History Past Medical History: Diabetes Mellitus, Hyperlipidemia, Hypertension, Sleep Apnea/CPAP/BIPAP, Thyroid Disorder Additional Past Medical History / Comment(s): Type II diabetes and hypothyroidism. Sleep apnea, osteopenia and FATTY LIVER. Chronic knee problems. Sciatica. 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 History of Any Multi-Drug Resistant Organisms: None Reported Past Surgical History: Breast Surgery Additional Past Surgical History / Comment(s): Thyroidectomy and multiple moles removed from the skin. Right breast biopsy. Colonoscopy 2017(next 5 yrs). H/S D&C 03/2019. Past Psychological History: No Psychological Hx Reported Smoking Status: Former smoker Past Alcohol Use History: Occasional (About 1 drink per week.) Additional Past Alcohol Use History / Comment(s): Quit smoking in 2012. Past Drug Use History: None Reported Additional History: She is and has been with her boyfriend since 2007. They live together. 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 - Past Family History Father Family Medical History: Myocardial Infarction ([place]) Mother Family Medical History: AFIB, Hypertension, Osteoarthritis (OA) Medications and Allergies Home Medications Medication Instructions Recorded Confirmed Type Enalapril/Hydrochlorothiazide 1 tab PO DAILY 08/31/17 01/28/21 History [Enalapril-Hctz 10-25 mg Tablet] Levothyroxine Sodium 112 mcg PO DAILY 08/31/17 01/28/21 History metFORMIN HCL ER [Glucophage XR] 500 mg PO BID 08/31/17 01/28/21 History L.acidoph,Paracasei, B.lactis 1 each PO DAILY 10/25/18 01/28/21 History [Probiotic] Cholecalciferol [Vitamin D3 (25 25 mcg PO DAILY 01/28/21 01/28/21 History Mcg = 1000 Iu)] Glucos Sul 2Kcl/MSM/Chond/C/Mn 1 each PO DAILY 01/28/21 01/28/21 History [Glucosamine Chondroitin Cap] Allergies Allergy/AdvReac Type Severity Reaction Status Date / Time No Known Allergies Allergy Unverified 02/17/22 14:09 Exam Vital Signs Temp Pulse Resp BP Pulse Ox 02/17/22 14:10 98.8 F 101 H 17 142/92 96 Intake and Output 02/16/22 02/17/22 02/17/22 22:59 06:59 14:59 Other: Weight 119.295 kg Height 5 feet 3 inches, weight 263 pounds, BMI 46.6. This is a well-developed well-nourished heavyset white female who is alert and oriented times 3 in no acute distress. HEENT: Within normal limits. NECK: Supple without mass or thyromegaly. CHEST AND LUNGS: Clear to auscultation. HEART: Regular rate and rhythm. BREASTS: Are without mass or discharge. AXILLARY EXAM: Negative for adenopathy. BACK: Negative for CVA tenderness. ABDOMEN: Soft, nontender, without palpable masses. PELVIC EXAM: Normal external genitalia with mild atrophy. Cervix and vagina appear normal with mild atrophy. The cervix is somewhat stenotic secondary to atrophy. There is no unusual discharge. There is no evidence of prolapse. The uterus is midposition, nongravid size and nontender. There are no palpable adnexal masses or tenderness. Bimanual examination is somewhat limited secondary to her size. RECTAL EXAM: Rectovaginal exam is negative for mass or tenderness and is negative for occult blood. EXTREMITIES: Nontender. IMPRESSION: 1. 61-year-old menopausal female with normal gynecologic exam. 2. History of osteopenia. PLAN: 1. Pap smear cotest was performed. 2. Self breast awareness was discussed with the patient. We have also discussed symptoms associated with inflammatory breast cancer. 3. Screening mammogram was done today. 4. Osteoporosis prevention was discussed. I have stressed the importance of adequate calcium, vitamin D and regular exercise. Recommended amounts of calcium and vitamin D were also discussed. Her last bone density test was done on 12/19/2019. We will plan on repeating this in 1 year. 5. She has completed her Covid vaccination series and has had Covid in the past. She is considering a booster. 6. She was advised to return in one year for her annual well woman exam.
--- NOTE | 2022-02-18 09:03 | MM ---
Reason for Exam: Screening (asymptomatic). Last screening mammogram was performed 12 month(s) ago. Patient History: Menarche at age 12. First Full-Term at age 17. Postmenopausal. Other cancer, age 14. 04/05/2007, Cyst Aspiration on the Right side. 04/14/2007, Benign Core Biopsy on the right side. 04/14/2007, Benign Core Biopsy on the right side. 04/14/2007, Bilateral Benign Core Biopsy. Risk Values: Nancy 5 year model risk: 1.6%. NCI Lifetime model risk: 7.7%. Prior Study Comparison: 08/18/2016 Bilateral Screening Mammogram, [facility]. 08/31/2017 Bilateral Screening Mammogram, [facility]. 10/25/2018 Bilateral Screening Mammogram, [facility]. 12/19/2019 Bilateral Screening Mammogram, [facility]. 01/28/2021 Bilateral Screening Mammogram, [facility]. Tissue Density: The breast tissue is heterogeneously dense. This may lower the sensitivity of mammography. Findings: Analyzed By CAD. Grouped desiccation seen within the left breast at the lateral aspect thought to be posterior to the nipple in the mid breast on MLO view. Unclear whether this is within a vessel as there is a vessel that crosses near these calcifications. These calcifications do look somewhat pleomorphic Right breast demonstrates no suspicious group of microcalcifications or new suspicious mass in either breast. Overall Assessment: Incomplete: need additional imaging evaluation, BI-RAD 0 Management: Special View Mammogram of the left breast. A clinical breast exam by your physician is recommended on an annual basis and results should be correlated with mammographic findings. [facility] will attempt to contact patient to return for supplemental views and ultrasound if indicated. Electronically signed and approved by: Earl Aguayo DO
== END | disposition home or self-care (01) ==
LOC: RADMAMWWP 13:37
PROVIDERS: ATTEND Obstetrics & Gynecology
DX: Z12.31 Encounter for screening mammogram for malignant neoplasm of breast (principal); I10 Essential (primary) hypertension; E03.9 Hypothyroidism, unspecified; E11.9 Type 2 diabetes mellitus without complications; E78.5 Hyperlipidemia, unspecified
CPT/HCPCS: 77067

== ENCOUNTER → 2022-02-20 | Outpatient (CLI) | payer BC ==
--- NOTE | 2022-02-20 10:19 | MM ---
Reason for Exam: Additional evaluation requested from abnormal screening. Last screening mammogram was performed less than 1 month ago. Patient History: Menarche at age 12. First Full-Term at age 17. Postmenopausal. Other cancer, age 14. 04/05/2007, Cyst Aspiration on the Right side. 04/14/2007, Benign Core Biopsy on the right side. 04/14/2007, Benign Core Biopsy on the right side. 04/14/2007, Bilateral Benign Core Biopsy. Risk Values: Nancy 5 year model risk: 1.6%. NCI Lifetime model risk: 7.7%. Prior Study Comparison: 08/18/2016 Bilateral Screening Mammogram, [facility]. 08/31/2017 Bilateral Screening Mammogram, [facility]. 10/25/2018 Bilateral Screening Mammogram, [facility]. 12/19/2019 Bilateral Screening Mammogram, [facility]. 01/28/2021 Bilateral Screening Mammogram, [facility]. 02/17/2022 Bilateral MG screening mammo w CAD, [facility]. Tissue Density: Left: The breast tissue is heterogeneously dense. This may lower the sensitivity of mammography. Findings: Analyzed By CAD. Calcifications appear over a tubular structure felt to be a vessel on ML, CC, MLO views. Suspicious masses calcifications or distortions. Overall Assessment: Benign, BI-RAD 2 Management: Screening Mammogram of both breasts in 1 year. A clinical breast exam by your physician is recommended on an annual basis and results should be correlated with mammographic findings. This exam should not preclude additional follow-up of suspicious palpable abnormalities. Results were given to the patient verbally at the time of exam. Electronically signed and approved by: Earl Aguayo DO
== END | disposition home or self-care (01) ==
LOC: RADMAMWWP 09:29
PROVIDERS: ATTEND Obstetrics & Gynecology
DX: R92.8 Other abnormal and inconclusive findings on diagnostic imaging of breast (principal); Z78.0 Asymptomatic menopausal state
CPT/HCPCS: 77061; 77065

== ENCOUNTER → 2023-03-02 | Outpatient (CLI) | payer BC ==
[2023-03-02 11:52] VITALS: BP 148/89; PULSE 86; RESP 18; TEMP 98.4
--- NOTE | 2023-03-02 12:16 | P.HPOB ---
History of Present Illness H&P Date: 03/02/23 Chief Complaint: The patient is here for her routine gynecologic exam and ma mmogram. This is a 62-year-old 011 with an LMP of 2015. The patient is getting over a cold. She states with coughing and sneezing she does have occasional urinary leakage. This is usually not a problem when she does not have a cold. She denies any postmenopausal bleeding and is without gynecologic complaints Review of Systems Weight has been stable. She does feel like she gains weight when she has a cold. Respiratory: She is getting over a cold. She denies cardiac or GI problems. : Some stress urinary incontinence when coughing and sneezing as in the HPI. Past Medical History Past Medical History: Diabetes Mellitus, Hyperlipidemia, Hypertension, Sleep Apnea/CPAP/BIPAP, Thyroid Disorder Additional Past Medical History / Comment(s): Type II diabetes and hypothyroidism. Sleep apnea, osteopenia and FATTY LIVER. Chronic knee problems. Sciatica. 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 History of Any Multi-Drug Resistant Organisms: None Reported Past Surgical History: Breast Surgery Additional Past Surgical History / Comment(s): Thyroidectomy and multiple moles removed from the skin. Right breast biopsy. Colonoscopy 2018(next 5 yrs). H/S D&C 03/2019. Past Psychological History: No Psychological Hx Reported Smoking Status: Former smoker Past Alcohol Use History: Occasional (2 drinks per month.) Additional Past Alcohol Use History / Comment(s): Quit smoking in 2012. Past Drug Use History: None Reported Additional History: She is and has been with her boyfriend since 2007. They live together. 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 - Past Family History Father Family Medical History: Myocardial Infarction ([place]) Mother Family Medical History: AFIB, Hypertension, Osteoarthritis (OA) Medications and Allergies Home Medications Medication Instructions Recorded Confirmed Type Enalapril/Hydrochlorothiazide 1 tab PO DAILY 08/31/17 03/02/23 History [Enalapril-Hctz 10-25 mg Tablet] Levothyroxine Sodium 112 mcg PO DAILY 08/31/17 03/02/23 History metFORMIN HCL ER [Glucophage XR] 500 mg PO BID 08/31/17 03/02/23 History L.acidoph,Paracasei, B.lactis 1 each PO DAILY 10/25/18 03/02/23 History [Probiotic] Cholecalciferol [Vitamin D3 (25 25 mcg PO DAILY 01/28/21 03/02/23 History Mcg = 1000 Iu)] Biotin [Rwqy-Rqfa-Wrngj] 10,000 mcg PO DAILY 03/02/23 03/02/23 History Magnesium 200 mg PO HS 03/02/23 03/02/23 History Allergies Allergy/AdvReac Type Severity Reaction Status Date / Time No Known Allergies Allergy Unverified 03/02/23 11:18 Exam Vital Signs Temp Pulse Resp BP Pulse Ox 03/02/23 11:20 98.4 F 86 18 148/89 94 L Intake and Output 03/01/23 03/02/23 03/02/23 22:59 06:59 14:59 Other: Weight 119.295 kg Height 5 feet 2 inches, weight 263 pounds, BMI 48.1. This is a well-developed well-nourished heavyset white female who is alert and oriented times 3 in no acute distress. HEENT: Within normal limits. NECK: Supple without mass or thyromegaly. CHEST AND LUNGS: Clear to auscultation. HEART: Regular rate and rhythm. BREASTS: Are without mass or discharge. AXILLARY EXAM: Negative for adenopathy. BACK: Negative for CVA tenderness. ABDOMEN: Soft, nontender, without palpable masses. PELVIC EXAM: Normal external genitalia with mild atrophy. Cervix and vagina appear normal mild atrophy. There is no unusual discharge. There is no evidence of prolapse at rest. There is mild urethral mobility with cough and Valsalva. No urinary leakage was demonstrated. The uterus is midposition, nongravid size and nontender. There are no palpable adnexal masses or tenderness. Bimanual examination is somewhat limited secondary to her size. RECTAL EXAM: Rectovaginal exam is negative for mass or tenderness and is trace positive for occult blood. There is good perivaginal and sphincter tone. EXTREMITIES: Nontender. IMPRESSION: 1. 62-year-old menopausal female with normal gynecologic exam. 2. Mild stress urinary incontinence which is exacerbated by her up respiratory cold symptoms. 3. History of osteopenia. 4. Elevated blood pressure with history of chronic hypertension. 5. Hemoccult positive stool on rectal examination. PLAN: 1. Pap smear was deferred since she had a negative Pap smear cotest on 02/17/2022. 2. Self breast awareness was discussed with the patient. We have also discussed symptoms associated with inflammatory breast cancer. 3. Screening mammogram will be done today. 4. I recommended a colonoscopy since she has had positive Hemoccult stool today and she is due for it anyway. She states she will see Dr. Solitario for this. Dr. Solitario has done her colonoscopies in the past. 5. We have discussed her mild stress urinary incontinence. We have discussed K[place] exercises and timed voids. We have discussed how she should do these on a regular basis. She will call if worsening symptoms. 6. We have discussed her elevated blood pressure today. She states she does check her own blood pressures at home and I recommended that she do this on a regular basis. She will follow-up with her PCP for elevated blood pressures. 7.Osteoporosis prevention was discussed. I have stressed the importance of adequate calcium, vitamin D and regular exercise. Recommended amounts of calcium and vitamin D were also discussed. We will be doing a bone density test today. 8. She was advised to return in one year for her annual well woman exam and as needed.
--- NOTE | 2023-03-02 18:40 | BD ---
EXAMINATION TYPE: Axial Bone Density DATE OF EXAM: 03/02/2023 CLINICAL HISTORY: 62 years old Female. ICD-10 CODE: Z78.0 POST MENOPAUSAL WITHOUT HRT Height: 5 f t 2 in Weight: 263 FRAX RISK QUESTIONS: Alcohol (3 or more units per day): no Family History (Parent hip fracture): no Glucocorticoids (More than 3mos): no (Ex: prednisone, prednisolone, methylprednisolone, dexamethasone, and hydrocortisone). History of Fracture in Adulthood: no Secondary Osteoporosis: 1. Type 1 Diabetes: type 2 2. Hyperthyroidism: no 3. Menopause before 45: no 4. Malnutrition: no 5. Chronic liver disease: fatty Rheumatoid Arthritis: no Current Tobacco Use: no RISK FACTORS HISTORY OF: Surgery to Spine/Hip(right/left)/Wrist (right/left): no Family History of Osteoporosis: no Active: no Diet low in dairy products/other sources of calcium: no Postmenopausal woman: yes Take estrogen and/or progesterone medications: no Lost more than 2 inches in height since high school: no Frequent falls: no Poor Health: good Hyperparathyroidism: no Adrenal Insufficiency: no MEDICATIONS: Thyroid Medications: yes Which medication: levothyroxine How Long: since age 13 Additional Medications: allopurinol , levothyroxine, Metformin Additional History: EXAM MEASUREMENTS: Bone mineral densitometry was performed using the [facility]. Bone mineral density as measured about the Lumbar spine is: ----- L1-L4(G/cm2): 1.096 T Score Values are as follows: ----- L1: -1.1 ----- L2: -1.2 ----- L3: -0.7 ----- L4: -0.1 ----- L1-L4: -0.7 Z Score Values are as follows: ----- L1: -0.9 ----- L2: -1.0 ----- L3: -0.5 ----- L4: 0.1 ----- L1-L4: -0.5 Bone mineral density has: increased 4.8 % since study of: 2019 Bone mineral density about the R hip (g/cm2): 0.913 Bone mineral density about the L hip (g/cm2): 0.881 T Score values are as follows: -----R Neck: -0.9 -----L Neck: -1.1 -----R Total: 0.0 -----L Total: -0.4 Z Score values are as follows: -----R Neck: -0.3 -----L Neck: -0.6 -----R Total: 0.2 -----L Total: -0.2 Bone mineral density has: decreased -1.4 % since study of: 2019 FRAX%s: The graph provided illustrates a 6.4 % chance for a major osteoporotic fx and a 0.4 % chance for the hips probability for fx in 10 years time. IMPRESSION: Osteopenia (T Score between -2.5 and -1). There is slightly increased risk of fracture and the patient may be considered for treatment. Re-Screen 2-5 years. NOTE: T-SCORE=SD OF THE YOUNG ADULT MEAN.
--- NOTE | 2023-03-03 16:28 | MM ---
Reason for Exam: Screening (asymptomatic). Last mammogram was performed 1 year(s) and 1 month(s) ago. Patient History: Menarche at age 12. First Full-Term at age 17. Postmenopausal. Other cancer, age 14. 04/05/2007, Cyst Aspiration on the Right side. 04/14/2007, Benign Core Biopsy on the right side. 04/14/2007, Benign Core Biopsy on the right side. 04/14/2007, Bilateral Benign Core Biopsy. Risk Values: Nancy 5 year model risk: 1.7%. NCI Lifetime model risk: 7.5%. Prior Study Comparison: 01/28/2021 Bilateral Screening Mammogram, [facility]. 02/17/2022 Bilateral MG screening mammo w CAD, [facility]. 02/20/2022 Left MG 3D work up w/cad LT, [facility]. Tissue Density: There are scattered fibroglandular densities. Findings: Analyzed By CAD. There is symmetrical and stable. No significant interval change is evident. Chronic nodularity is present bilaterally. No suspicious groups of microcalcifications, spiculated or lobular masses, architectural distortion or other secondary signs of malignancy are mammographically apparent. Overall Assessment: Benign, BI-RAD 2 Management: Screening Mammogram of both breasts in 1 year. A negative mammogram report should not preclude additional follow up of suspicious palpable abnormalities. Patient should continue monthly self breast exam. A clinical breast exam by your physician is recommended on an annual basis and results should be correlated with mammographic findings. Electronically signed and approved by: Balbir Bender D.O. Radiologis
== END ==
LOC: WWCWWP 11:09
PROVIDERS: ATTEND Obstetrics & Gynecology
DX: Z12.31 Encounter for screening mammogram for malignant neoplasm of breast (principal); M81.8 Other osteoporosis without current pathological fracture; I10 Essential (primary) hypertension; R19.5 Other fecal abnormalities; N39.3 Stress incontinence (female) (male); E03.9 Hypothyroidism, unspecified; E11.9 Type 2 diabetes mellitus without complications; E78.5 Hyperlipidemia, unspecified; G47.30 Sleep apnea, unspecified; J00 Acute nasopharyngitis [common cold]; K76.0 Fatty (change of) liver, not elsewhere classified; Z78.0 Asymptomatic menopausal state; Z79.890 Hormone replacement therapy; Z87.891 Personal history of nicotine dependence; Z79.84 Long term (current) use of oral hypoglycemic drugs; Z79.899 Other long term (current) drug therapy
CPT/HCPCS: 77063; 77067; 77080

== ENCOUNTER → 2024-03-15 | Outpatient (CLI) | payer BC ==
[2024-03-15 11:20] VITALS: BP 142/91; PULSE 79; RESP 17; TEMP 98.4
--- NOTE | 2024-03-15 12:13 | P.HPOB ---
History of Present Illness H&P Date: 03/15/24 Chief Complaint: The patient is here for her routine gynecologic exam and ma mmogram. This is a 63-year-old -0-1-1 with an LMP of 2015. The patient is without gynecologic complaints and denies any postmenopausal bleeding. She previously had a heme positive testing with a last year's rectal exam on 03/02/2023. She states she did not have a colonoscopy done yet. She states she did 2 home fecal occult blood test kits which were both negative. She states her brother was recently diagnosed with colon cancer and she states she is planning to schedule a colonoscopy in the near future. Review of Systems The patient's weight has been stable over the last year. She denies respiratory, cardiac, or G.I. problems. Past Medical History Past Medical History: Diabetes Mellitus, Hyperlipidemia, Hypertension, Sleep Apnea/CPAP/BIPAP, Thyroid Disorder Additional Past Medical History / Comment(s): Type II diabetes and hypothyroidism. Sleep apnea, osteopenia and FATTY LIVER. Chronic knee problems. Sciatica. Charcot foot. 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 History of Any Multi-Drug Resistant Organisms: None Reported Past Surgical History: Breast Surgery Additional Past Surgical History / Comment(s): Thyroidectomy and multiple moles removed from the skin. Right breast biopsy. Colonoscopy 2018(next 5 yrs). H/S D&C 03/2019. Past Psychological History: No Psychological Hx Reported Smoking Status: Former smoker Past Alcohol Use History: Occasional (1 drink per week.) Additional Past Alcohol Use History / Comment(s): Quit smoking in 2012. Past Drug Use History: None Reported Additional History: She is and has been with her boyfriend since 2007. They live together. 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 - Past Family History Father Family Medical History: Myocardial Infarction ([place]) Mother Family Medical History: AFIB, Hypertension, Osteoarthritis ([place]) Brother(s) Family Medical History: Cancer Additional Family Medical History / Comment(s): Colon cancer. Medications and Allergies Home Medications Medication Instructions Recorded Confirmed Type Enalapril/Hydrochlorothiazide 1 tab PO DAILY 08/31/17 03/15/24 History [Enalapril-Hctz 10-25 mg Tablet] Levothyroxine Sodium 112 mcg PO DAILY 08/31/17 03/15/24 History metFORMIN HCL ER [Glucophage XR] 500 mg PO BID 08/31/17 03/15/24 History L.acidoph,Paracasei, B.lactis 1 each PO DAILY 10/25/18 03/15/24 History [Probiotic] Cholecalciferol [Vitamin D3 (25 25 mcg PO DAILY 01/28/21 03/15/24 History Mcg = 1000 Iu)] Biotin [Rvbg-Hiou-Ouwfl] 10,000 mcg PO DAILY 03/02/23 03/15/24 History Magnesium 200 mg PO HS 03/02/23 03/15/24 History Allergies Allergy/AdvReac Type Severity Reaction Status Date / Time No Known Allergies Allergy Unverified 03/15/24 11:17 Exam Vital Signs Temp Pulse Resp BP Pulse Ox 03/15/24 11:18 98.4 F 79 17 142/91 100 Intake and Output 03/14/24 03/15/24 03/15/24 22:59 06:59 14:59 Other: Weight 118.841 kg Height 5 feet 3 inches, weight 262 pounds, BMI 46.4. This is a well-developed well-nourished heavyset white female who is alert and oriented times 3 in no acute distress. HEENT: Within normal limits. NECK: Supple without mass or thyromegaly. CHEST AND LUNGS: Clear to auscultation. HEART: Regular rate and rhythm. BREASTS: Are without mass or discharge. AXILLARY EXAM: Negative for adenopathy. BACK: Negative for CVA tenderness. ABDOMEN: Soft, obese, nontender, without palpable masses. PELVIC EXAM: Normal external genitalia with mild atrophy. Cervix and vagina appear normal with mild atrophy. There is no unusual discharge. There is no evidence of prolapse. The uterus is midposition, nongravid size and nontender. There are no palpable adnexal masses or tenderness. Bimanual examination is somewhat limited secondary to her size. RECTAL EXAM: Rectovaginal exam is negative for mass or tenderness and is negative for occult blood. EXTREMITIES: Nontender. IMPRESSION: 1. 63-year-old menopausal female with normal gynecologic exam. 2. History of osteopenia. PLAN: 1. Pap smear was deferred since she had a negative Pap smear cotest on 02/17/2022. 2. Self breast awareness was discussed with the patient. We have also discusse d symptoms associated with inflammatory breast cancer. 3. Screening mammogram will be done today. 4. Osteoporosis prevention was discussed. I have stressed the importance of adequate calcium, vitamin D and regular exercise. Recommended amounts of calcium and vitamin D were also discussed. We will plan on repeating her bone density test in approximately 1 to 2 years 5. I have strongly recommended that she get a colonoscopy done since she has not had one for about 6 years. She now has a family history of colon cancer. She states she will be doing this in the near future. She will arrange this through her PCP. 6. She was advised to return in one year for her annual well woman exam.
--- NOTE | 2024-03-16 08:23 | MM ---
Reason for Exam: Screening (asymptomatic). Last screening mammogram was performed 12 month(s) ago. Patient History: Menarche at age 12. First Full-Term at age 17. Postmenopausal. Other cancer, age 14. 04/05/2007, Cyst Aspiration on the Right side. 04/14/2007, Benign Core Biopsy on the right side. 04/14/2007, Benign Core Biopsy on the right side. 04/14/2007, Bilateral Benign Core Biopsy. Risk Values: Nancy 5 year model risk: 1.7%. NCI Lifetime model risk: 7.2%. Prior Study Comparison: 08/31/2017 Bilateral Screening Mammogram, [facility]. 10/25/2018 Bilateral Screening Mammogram, [facility]. 12/19/2019 Bilateral Screening Mammogram, [facility]. 01/28/2021 Bilateral Screening Mammogram, [facility]. 02/17/2022 Bilateral MG screening mammo w CAD, [facility]. 02/20/2022 Left MG 3D work up w/cad LT, [facility]. 03/02/2023 Bilateral MG 3D screening mammo w/cad, [facility]. Tissue Density: The breasts are heterogeneously dense, which may obscure small masses. Findings: Analyzed By CAD. There is no suspicious group of microcalcifications or new suspicious mass in either breast. Overall Assessment: Benign, BI-RAD 2 Management: Screening Mammogram of both breasts in 1 year. . Patient should continue monthly self-breast exams. A clinical breast exam by your physician is recommended on an annual basis. This exam should not preclude additional follow-up of suspicious palpable abnormalities. Note on Nancy scores and lifetime risk: 1. A Nancy score greater than 3% is considered moderate risk. If this is the case, consider specialist referral to assess eligibility for a risk reducing agent. 2. If overall lifetime risk for the development of breast cancer is 20% or higher, the patient may qualify for future screening with alternating mammogram and breast MRI. [facility], , 03/16/2024 8:19 AM. Electronically signed and approved by: Alfredo Barba M.D. Radiologis
== END ==
LOC: WWCWWP 11:06
PROVIDERS: ATTEND Obstetrics & Gynecology
DX: Z12.31 Encounter for screening mammogram for malignant neoplasm of breast (principal); R92.8 Other abnormal and inconclusive findings on diagnostic imaging of breast; R92.333 Mammographic heterogeneous density, bilateral breasts; M85.80 Other specified disorders of bone density and structure, unspecified site; Z78.0 Asymptomatic menopausal state; Z87.891 Personal history of nicotine dependence
CPT/HCPCS: 77063; 77067